=== PATIENT | male | born 1995 | race Caucasian/White ===

== ENCOUNTER 2021-04-25 05:45 | Emergency (ER) | payer OTHER ==
[~2021-04-25] VITALS: Ht 172.7 cm; Wt 86.2 kg
[2021-04-25 05:55] VITALS: BP 132/74
[2021-04-25] MEDS ORDERED: KETOROLAC 60 MG/2 ML VIAL IM ONE (07:30)
[2021-04-25] MEDS ORDERED: ONDANSETRON 4 MG ODT PO ONE (07:30)
--- NOTE | 2021-04-25 07:30 | NUR ---
PT BROUGHT BACK TO ROOM 12
--- NOTE | 2021-04-25 07:35 | NUR ---
17G IV ESTABLISHED IN [facility] [place] AND BLOODWORK COLLECTED AND WALKED OVER TO LAB
[2021-04-25] MEDS ORDERED: DIPHENOXYLATE /ATROPINE 2.5 MG TAB PO ONE (07:40)
--- NOTE | 2021-04-25 07:43 | NUR ---
26Y MALE BIB SELF DUE TO ABDOMINAL PAIN SINCE 0200 THIS AM. PER PATIENT THE ABDOMINAL PAIN IS "CRAMPING/SHARP" LIKE IN PAIN THAT IS MAINLY FELT IN THE LOWER ABDOMEN. PT DENIES ANY RADITING PAIN AT THIS TIME. ABDOMEN IS TENDER TO TOUCH AND BOWEL SOUNDS ACTIVE. PT ALSO C/O N/V BUT DENIES ANY DIARRHEA. SKIN IS DRY AND INTACT, PT CURRENTLY A&OX4. PT PLACED ON HAT CUTTER BEDSIDE AND PUT INTO GOWN PMH: DENIES NKA
[2021-04-25 07:47] LABS: HEMATOCRIT 46.6 % (36-52); HEMOGLOBIN 15.9 g/dL (12.0-18.0); MEAN CORPUSCULAR HEMOGLOBIN 31 pg (27-31); MEAN CORPUSCULAR HGB CONC 34 g/dL (33-37); MEAN CORPUSCULAR VOLUME 91.6 fL (80-94); PLATELET COUNT (AUTO) 289 K/uL (140-450); RED BLOOD CELL COUNT(AUTO) 5.09 MIL/uL (4.20-6.10); RED CELL DISTRIBUTION WIDTH 12.6 % (11.6-13.7); WHITE BLOOD COUNT (AUTO) 14.7 K/uL (4.8-10.8)
[2021-04-25 08:01] LABS: EOSINOPHILS % (MANUAL) 3 % (0-4); LYMPHOCYTES % (MANUAL) 4 % (20-46); MONOCYTES % (MANUAL) 4 % (5-12)
--- NOTE | 2021-04-25 08:26 | NUR ---
Patient appears to be resting comfortably in bed. Vital Signs within normal limits. Respirations even and unlabored.
[2021-04-25 08:51] LABS: ALBUMIN 4.1 g/dL (3.4-5.0); ANION GAP 14.2 (8-16); CREATININE 0.9 mg/dL (0.6-1.3); POTASSIUM 4.2 mmol/L (3.5-5.1); TOTAL BILIRUBIN 0.4 mg/dL (0.0-1.0)
[2021-04-25] MEDS ORDERED: ONDA-188 SL (09:04)
[2021-04-25] MEDS ORDERED: TRAM50TA1 PO (09:04)
[2021-04-25] MEDS ORDERED: ATRO1TAB PO (09:04)
[2021-04-25] MEDS ORDERED: SULF-58 PO (09:04)
[2021-04-25 09:26] VITALS: BP 126/80
--- NOTE | 2021-04-25 09:26 | NUR ---
Patient discharged with v/s stable. Written and verbal after care instructions given FOR VIRAL GASTROENTERITIS and explained. Patient alert, oriented and verbalized understanding of instructions. Ambulatory with steady gait. All questions addressed prior to discharge. ID band removed. Patient advised to follow up with PMD. Rx of BACTRIM, XOFRAN, TRAMADOL, AND LOMOTIL given. Patient educated on indication of medication including possible reaction and side effects. Opportunity to ask questions provided and answered.
== END 2021-04-25 09:26 | disposition home or self-care (01) ==
LOC: MED 05:45
DX: K52.9 Noninfective gastroenteritis and colitis, unspecified (principal); Z79.2 Long term (current) use of antibiotics; Z79.891 Long term (current) use of opiate analgesic; Z79.899 Other long term (current) drug therapy
CPT/HCPCS: 36415; 80053; 82150; 83690; 85025; 96372; 99283; J1885; Q0162